=== PATIENT | female | born 2000 | race African-American/Black ===

== ENCOUNTER 2020-11-30 16:16 | Emergency (ER) | payer MEDICAID ==
[~2020-11-30] VITALS: Ht 170.2 cm; Wt 52.3 kg
--- NOTE | 2020-11-30 16:39 | PHYS DOC ---
Past Medical History Past Medical History: No Pertinent History Past Surgical History: No Surgical History Smoking Status: Never Smoker Alcohol Use: None Drug Use: None General Adult EDM: Chief Complaint: CHEST WALL PAIN HPI: HPI: Patient is a 20 year old [f__sex] who presents with [] Review of Systems: Review of Systems: Constitutional: Denies fever or chills. [] Eyes: Denies change in visual acuity. [] HENT: Denies nasal congestion or sore throat. [] Respiratory: Denies cough or shortness of breath. [] Cardiovascular: Denies chest pain or edema. [] GI: Denies abdominal pain, nausea, vomiting, bloody stools or diarrhea. [] : Denies dysuria. [] Musculoskeletal: Denies back pain or joint pain. [] Integument: Denies rash. [] Neurologic: Denies headache, focal weakness or sensory changes. [] Endocrine: Denies polyuria or polydipsia. [] Lymphatic: Denies swollen glands. [] Psychiatric: Denies depression or anxiety. [] Heart Score: Risk Factors: Risk Factors: DM, Current or recent (<one month) smoker, HTN, HLP, family history of CAD, obesity. Risk Scores: Score 0 - 3: 2.5% MACE over next 6 weeks - Discharge Home Score 4 - 6: 20.3% MACE over next 6 weeks - Admit for Clinical Observation Score 7 - 10: 72.7% MACE over next 6 weeks - Early Invasive Strategies Physical Exam: PE: Constitutional: Well developed, well nourished, no acute distress, non-toxic appearance. [] HENT: Normocephalic, atraumatic, bilateral external ears normal, oropharynx moist, no oral exudates, nose normal. [] Eyes: PERRLA, EOMI, conjunctiva normal, no discharge. [] Neck: Normal range of motion, no tenderness, supple, no stridor. [] Cardiovascular:Heart rate regular rhythm, no murmur [] Lungs & Thorax: Bilateral breath sounds clear to auscultation [] Abdomen: Bowel sounds normal, soft, no tenderness, no masses, no pulsatile masses. [] Skin: Warm, dry, no erythema, no rash. [] Back: No tenderness, no CVA tenderness. [] Extremities: No tenderness, no cyanosis, no clubbing, ROM intact, no edema. [] Neurologic: Alert and oriented X 3, normal motor function, normal sensory functi on, no focal deficits noted. [] Psychologic: Affect normal, judgement normal, mood normal. [] EKG: EKG: @1627 NSR at 87bpm with sinus arrhythmia, NO ST elevation, QRS 62ms, QT/QTc 338/407ms Radiology/Procedures: Radiology/Procedures: [] Course & Med Decision Making: Course & Med Decision Making Pertinent Labs and Imaging studies reviewed. (See chart for details) [] Dragon Disclaimer: Dragon Disclaimer: This electronic medical record was generated, in whole or in part, using a voice recognition dictation system. Departure Departure Impression: Primary Impression: Chest pain during Disposition: 01 DC HOME SELF CARE/HOMELESS Condition: STABLE Patient Instructions: ABCs of , Chest Pain (Nonspecific), [id number] Additional Instructions: Follow closely with your [facility]ARD ATTENDANT for further evaluation. Return to ED for any worsening of condition or further concern. Scripts Famotidine (PEPCID) 20 Mg Tablet 20 MG PO BID for 7 Days, #14 TAB Prov: MAITE SANTANA DO 11/30/20 MAITE SANTANA DO Nov 30, 2020 16:39
[2020-11-30] MEDS ORDERED: LIDO:MAALOX 1:1 20 ML SINGLE DOSE. PO ONE (17:30)
[2020-11-30] MEDS ORDERED: FAMO-63 PO (18:14)
[2020-11-30] MEDS ORDERED: FAMOTIDINE 20 MG TABLET. PO ONE (18:15)
--- NOTE | 2020-11-30 18:32 | EKG ---
[facility] [address] [place] [address] Test Date: 2020-11-30 Test Time: 16:27:14 Pat Name: RAPHAEL RUBIO Department: Room: Gender: F [employer]per Load[employer] Operator: : [id number] Requested By: MAITE SANTANA Order Number: [id number] Reading MD: Measurements Intervals Randolph Rate: 87 P: 52 MA: 148 QRS: 26 QRSD: 62 T: 40 QT: 338 QTc: 407 Interpretive Statements SINUS RHYTHM NORMAL ECG RI6.02 No previous ECG available for comparison
[2020-11-30 19:25] VITALS: BP 118/79
== END 2020-11-30 19:30 | disposition home or self-care (01) ==
LOC: ER 16:16
DX: O26.891 Other specified pregnancy related conditions, first trimester (principal); R07.89 Other chest pain; Z3A.01 Less than 8 weeks gestation of pregnancy
CPT/HCPCS: 93005; 99283

== ENCOUNTER 2021-09-13 12:34 | Emergency (ER) | payer SELFPAY ==
[~2021-09-13] VITALS: Ht 170.2 cm; Wt 52.2 kg
[~2021-09-13 12:34] MED LIST: FAMO-63 PO
[2021-09-13 14:17] LABS: BILIRUBIN,URINE NEGATIVE (NEG); CLARITY,URINE CLEAR; COLOR,URINE YELLOW; NITRITE,URINE NEGATIVE (NEG); PROTEIN,URINE NEGATIVE (NEG-TRACE)
[2021-09-13 14:24] LABS: BACTERIA,URINE FEW /HPF (0-FEW); RBC,URINE 0 /HPF (0-2)
[2021-09-13] MEDS ORDERED: metroNIDAZOLE 500 MG TABLET PO ONE (14:30)
[2021-09-13] MEDS ORDERED: ONDANSETRON PF 4 MG/2 ML VIAL. IVP ONE (14:30)
[2021-09-13] MEDS ORDERED: IV NORMAL SALINE 1000ML BAG 1,000 ML IV SCH (14:30)
[2021-09-13] MEDS ORDERED: cefTRIAXone IV Push 1 GM VIAL. IVP ONE (14:30)
[2021-09-13] MEDS ORDERED: DOXYCYCLINE HYCLATE 100 MG in IV DEXTROSE 5% 100ML 100 ML IV ONE (14:30)
--- NOTE | 2021-09-13 14:34 | PHYS DOC ---
Past Medical History Additional Past Medical Histor: Scoliosis Additional Past Surgical Histo: Keloid removal surgery Smoking Status: Former Smoker Alcohol Use: None Drug Use: None General Adult EDM: Chief Complaint: ABDOMINAL PAIN HPI: HPI: Patient is a 20 year old female who presents with 2 weeks of low mid abdominal pain, pain with urination, foul-smelling brownish discharge. States she is also at the chills intermittently. The last day of her last period was August 26. She has a history of a vaginal uncomplicated delivery 7 months ago, former smoker, keloid removal. Rates her pain at a 7 out of 10. Review of Systems: Review of Systems: Constitutional: Denies fever or chills. [] Eyes: Denies change in visual acuity. [] HENT: Denies nasal congestion or sore throat. [] Respiratory: Denies cough or shortness of breath. [] Cardiovascular: Denies chest pain or edema. [] GI: + abdominal pain, denies nausea, vomiting, bloody stools or diarrhea. [] : Denies dysuria. + vaginal discharge[] Musculoskeletal: Denies back pain or joint pain. [] Integument: Denies rash. [] Neurologic: Denies headache, focal weakness or sensory changes. [] Endocrine: Denies polyuria or polydipsia. [] Lymphatic: Denies swollen glands. [] Psychiatric: Denies depression or anxiety. [] Heart Score: C/O Chest Pain: No Current Medications: Current Medications Medications (Trade) Dose Ordered Sig/Bethany Start Time Stop Time Status Last Admin Dose Admin Ceftriaxone Sodium (Rocephin) 1 gm 1X ONCE 09/13/21 14:30 09/13/21 14:31 Doxycycline Hyclate 100 mg/ Dextrose 100 ml @ 50 mls/hr 1X ONCE 09/13/21 14:30 09/13/21 16:29 Metronidazole (Flagyl) 500 mg 1X ONCE 09/13/21 14:30 09/13/21 14:31 Ondansetron HCl (Zofran) 4 mg 1X ONCE 09/13/21 14:30 09/13/21 14:31 Sodium Chloride 1,000 ml @ 1,000 mls/hr Q1H 09/13/21 14:30 09/13/21 15:29 Allergies: Allergies: Allergies Coded Allergies Type Severity Reaction Last Updated Verified No Known Drug Allergies 11/30/20 No Physical Exam: PE: Constitutional: Well developed, well nourished, no acute distress, non-toxic appearance. [] HENT: Normocephalic, atraumatic, bilateral external ears normal, oropharynx moist, no oral exudates, nose normal. [] Eyes: PERRLA, EOMI, conjunctiva normal, no discharge. [] Neck: Normal range of motion, no tenderness, supple, no stridor. [] Cardiovascular:Heart rate regular rhythm, no murmur [] Lungs & Thorax: Bilateral breath sounds clear to auscultation [] Abdomen: Bowel sounds normal, soft, low mid tenderness, no masses, no pulsatile masses. Tampoon stuck in vaginal canal [] Skin: Warm, dry, no erythema, no rash. [] Back: No tenderness, no CVA tenderness. [] Extremities: No tenderness, no cyanosis, no clubbing, ROM intact, no edema. [] Neurologic: Alert and oriented X 3, normal motor function, normal sensory function, no focal deficits noted. [] Psychologic: Affect normal, judgement normal, mood normal. [] Current Patient Data: Labs: Laboratory Tests Test 09/13/21 13:58 09/13/21 14:09 Urine Collection Type Unknown Urine Color Yellow Urine Clarity Clear Urine pH 6.0 (<5.0-8.0) Urine Specific Slater 1.025 (1.000-1.030) Urine Protein Negative mg/dL (NEG-TRACE) Urine Glucose (UA) Negative mg/dL (NEG) Urine Ketones (Stick) 15 mg/dL (NEG) Urine Blood Negative (NEG) Urine Nitrite Negative (NEG) Urine Bilirubin Negative (NEG) Urine Urobilinogen Dipstick 1.0 mg/dL (0.2 mg/dL) Urine Leukocyte Esterase Negative (NEG) Urine RBC 0 /HPF (0-2) Urine WBC 1-4 /HPF (0-4) Urine Squamous Epithelial Cells Mod /LPF Urine Bacteria Few /HPF (0-FEW) Urine Mucus Marked /LPF POC Urine HCG, Qualitative Hcg negative (Negative) Microbiology 09/13/21 Wet Prep - Final, Complete EKG: EKG: [] Radiology/Procedures: Radiology/Procedures: [] Impression: [facility] [address] [place] [address] IMAGING REPORT Signed PATIENT: RAPHAEL RUBIO ACCOUNT: [id number] : 2000 LOCATION: ER AGE: 20 SEX: F EXAM STATUS: REG ER ORD. PHYSICIAN: ANAND DA SILVA APRN REASON: VAGINAL D/C, TAMPOON LEFT IN CANAL FOR 2 WEEKS PROCEDURE: CT ABD PELV W/ IV CONTRST ONLY EXAM: Abdomen and pelvis CT with intravenous contrast. HISTORY: Tampon left vagina for 2 weeks. TECHNIQUE: Computed tomographic images of the abdomen and pelvis were obtained following the administration of intravenous contrast. Multiplanar reformatting was performed. *One or more of the following individualized dose reduction techniques were utilized for this examination: 1. Automated exposure control. 2. Adjustment of the mA and/or kV according to patient size. 3. Use of iterative reconstruction technique. COMPARISON: None. FINDINGS: Evaluation of the lower thorax is unremarkable. No hepatic lesion is seen. The gallbladder, pancreas, spleen and adrenal glands are unremarkable. There is right renal caliectasis. There is no obstructive uropathy. The bladder is unremarkable. There is no appendicitis. There is no bowel obstruction. There is a retroverted uterus. There is a small amount of gas and fluid within the vagina. There is extensive fatty stranding surrounding the uterus and within the adnexal regions. The ovaries are not well seen due to the degree of stranding. No adnexal mass is seen. The aorta is normal in caliber. There is no lymphadenopathy. There is scoliosis. There is no suspicious osseous lesion. IMPRESSION: 1. Inflammatory stranding throughout the pelvis suggesting pelvic inflammatory disease. No drainable collection/abscess is seen. Correlate with pelvic exam findings. 2. Right renal caliectasis. Electronically signed by: Bailey Trejo MD (09/13/2021 4:01 PM) [id number] DICTATED and SIGNED BY: BAILEY TREJO MD DATE: 09/13/21 [id number] Course & Med Decision Making: Course & Med Decision Making Pertinent Labs and Imaging studies reviewed. (See chart for details) See HPI. Alert and oriented x4. Ambulatory steady gait. Speaks in full clear sentences. Skin pink warm and dry. Abdomen is soft but slightly tender at low mid abdomen. No CVA tenderness. Patient states she is been having the chills but does not currently have a fever. Green foul-smelling vaginal discharge. I have sent off a culture for chlamydia and gonorrhea and a wet prep. Patient is started on doxycycline IV, Rocephin IV and Flagyl was given p.o. due to national IV shortage. Wet prep shows bacterial vaginosis. Blood work is unremarkable. CT abdomen pelvis shows PID. Patient is stable. She will be sent home with a prescription for doxycycline and metronidazole. I have educated her to pump and dump for the next 2 weeks. She is to follow-up with her LAUNCH STEWARD in the next week. Pelvic Exam: Director Of [employer] Services present Abdomen: Low mid tenderness External Genitalia: Normal Skin Speculum: Normal vaginal mucosa, green foul-smelling cervical discharge, tampon stuck up in vaginal canal from 2 weeks ago. Bimanual: No adnexal masses or tenderness, No CMT [] Dragon Disclaimer: Dragon Disclaimer: This electronic medical record was generated, in whole or in part, using a voice recognition dictation system. Departure Departure Impression: Primary Impression: PID (acute pelvic inflammatory disease) Disposition: HOME / SELF CARE / HOMELESS Condition: STABLE Referrals: NO PCP (PCP) MAITE GARCIA MD Patient Instructions: Pelvic Inflammatory Disease Additional Instructions: Follow-up with your LAUNCH STEWARD in the next week. Take medication as prescribed and with food until it is totally gone. Drink plenty of fluids. Take ibuprofen or Tylenol for your pain. While taking medication antibiotics if you are breast- feeding make sure you pump and dump for 2 weeks while you are on the antibiotics. It is very important that you take the antibiotics because she can become severely ill. Remember that the chlamydia and gonorrhea test does not come back for 48 hours and you will be called only if something comes up positive. Scripts Metronidazole (METRONIDAZOLE) 500 Mg Tablet 1 TAB PO BID for 14 Days, #28 TAB 0 Refills Prov: ANAND DA SILVA APRN 09/13/21 Doxycycline Hyclate (DOXYCYCLINE HYCLATE) 100 Mg Capsule 1 CAP PO BID, #14 CAP Prov: ANAND DA SILVA APRN 09/13/21 ANAND DA SILVA APRN Sep 13, 2021 14:34
[2021-09-13 14:42] LABS: BASO % 0 % (0-3); EOS # 0.1 x10^3/uL (0.0-0.7); EOS % 1 % (0-3); HEMATOCRIT 37.7 % (36.0-47.0); HEMOGLOBIN 12.4 g/dL (12.0-15.5); LYMPH # 2.4 x10^3/uL (1.0-4.8); LYMPH % 23 % (24-48); MEAN CORPUSCULAR HEMOGLOBIN 30 pg (25-35); MEAN CORPUSCULAR HGB CONC 33 g/dL (31-37); MEAN CORPUSCULAR VOLUME 91 fL (79-100); MONO # 0.8 x10^3/uL (0.0-1.1); MONO % 8 % (0-9); NEUT # 7.1 x10^3/uL (1.8-7.7); NEUT % 68 % (31-73); PLATELET COUNT 476 x10^3/uL (140-400); RED BLOOD COUNT 4.13 x10^6/uL (3.50-5.40); RED CELL DISTRIBUTION WIDTH 12.9 % (11.5-14.5); WHITE BLOOD COUNT 10.5 x10^3/uL (4.0-11.0)
[2021-09-13 14:47] LABS: CALCIUM 9.1 mg/dL (8.5-10.1); CREATININE 0.8 mg/dL (0.6-1.0); GFR 110.7
[2021-09-13 14:53] LABS: ALBUMIN 3.5 g/dL (3.4-5.0); ALBUMIN/GLOBULIN RATIO 0.7 (1.0-1.7); TOTAL BILIRUBIN 0.6 mg/dL (0.2-1.0); TOTAL PROTEIN 8.5 g/dL (6.4-8.2)
[2021-09-13] MEDS ORDERED: CONTRAST GIVEN. MC PRN (15:15)
[2021-09-13] MEDS ORDERED: IOHEXOL 300 MG/ML 100ML VIAL. IV ONE (15:15)
--- NOTE | 2021-09-13 16:04 | RAD ---
EXAM: Abdomen and pelvis CT with intravenous contrast. HISTORY: Tampon left vagina for 2 weeks. TECHNIQUE: Computed tomographic images of the abdomen and pelvis were obtained following the administ ration of intravenous contrast. Multiplanar reformatting was performed. *One or more of the following individualized dose reduction techniques were utilized for this examina tion: 1. Automated exposure control. 2. Adjustment of the mA and/or kV according to patient size. 3. Use of iterative reconstruction technique. COMPARISON: None. FINDINGS: Evaluation of the lower thorax is unremarkable. No hepatic lesion is seen. The gallbladder, pancreas, spleen and adrenal glands are unremarkable. There is right renal caliectasis. There is no obstructive uropathy. The bladder is unremarkable. There is no appendicitis. There is no bowel obstruction. There is a retroverted uterus. There is a sm all amount of gas and fluid within the vagina. There is extensive fatty stranding surrounding the oziel ameena and within the adnexal regions. The ovaries are not well seen due to the degree of stranding. No adnexal mass is seen. The aorta is normal in caliber. There is no lymphadenopathy. There is scoliosis . There is no suspicious osseous lesion. IMPRESSION: 1. Inflammatory stranding throughout the pelvis suggesting pelvic inflammatory disease. No drainable collection/abscess is seen. Correlate with pelvic exam findings. 2. Right renal caliectasis. Electronically signed by: Bailey Alonzo MD (09/13/2021 4:01 PM) [id number]
[2021-09-13] MEDS ORDERED: DOXY100C3 PO (16:13)
[2021-09-13] MEDS ORDERED: METR-34 PO (16:13)
[2021-09-13 16:38] VITALS: BP 117/66
[2021-09-15 19:09] LABS: GC PROBE Positive (Negative)
== END 2021-09-13 17:07 | disposition home or self-care (01) ==
LOC: ER 12:34
DX: N73.0 Acute parametritis and pelvic cellulitis (principal); Z87.891 Personal history of nicotine dependence
CPT/HCPCS: 36415; 74177; 80053; 81001; 81025; 83605; 85025; 87040; 87491; 87591; 96365; 96366; 96375; 99285; J0696; J2405; J3490; J7030; J7060; Q0111; Q9967